=== PATIENT | male | born 1980 ===

== ENCOUNTER → 2019-08-31 07:00 | Outpatient (CLI) | payer OTHER ==
[~2019-08-31 07:00] MED LIST: COZAAR50 MG PO; FENOFIBRATE150 MG PO
== END | disposition home or self-care (01) ==
LOC: EKG 07:00 → ADM 08:45 → EDSTATUS 09-05 08:45 → ADM 09-05 08:45 → CIR.AMB 09-05 08:45
DX: K64.2 Third degree hemorrhoids (principal); K92.2 Gastrointestinal hemorrhage, unspecified; I10 Essential (primary) hypertension

== ENCOUNTER 2019-11-07 05:35 | Day surgery (SDC) | payer OTHER | END 2019-11-07 15:30 | disposition home or self-care (01) | LOC: CIR.AMB 05:35 | DX: K64.8 Other hemorrhoids (principal); K64.4 Residual hemorrhoidal skin tags ==